=== PATIENT | female | born 1955 | race Caucasian/White ===

== ENCOUNTER → 2016-11-07 | Outpatient (CLI) | payer OTHER ==
[~2016-11-07] MED LIST: ATOR40TA PO; BENA20 PO; FURO20 PO; LAMI250T PO; POTA99TA12 PO; PRIL10CA PO; SERT-129 PO
--- NOTE | 2016-11-07 08:19 | RADRPT ---
EXAM DATE/TIME: 11/07/2016 07:48 [facility] COMPARISON: CHEST SINGLE AP, November 06, 2010, 9:31. INDICATIONS : Cough, congestion x 3 weeks. MEDICAL HISTORY : Hypertension. Renal calculi. Gastroesophageal reflux disease. Pulmonary embolism. SURGICAL HISTORY : Tonsillectomy. Tubal ligation. ENCOUNTER: Initial ACUITY: 3 weeks PAIN SCORE: 0/10 LOCATION: chest FINDINGS: There is mild atelectasis or infiltrate in the lower lung zones. A small area of nodular density seen in the lateral right midlung is not present previously. Retrocardiac double density may be hiatal he rnia. Cardiomediastinal contours are satisfactory otherwise. Thoracic skeleton appears intact. CONCLUSION: Basilar infiltrates. Small area of nodular density in the right midlung Francisco Yao MD on November 07, 2016 at 8:15 Board Certified Radiologist. This report was verified electronically.
== END ==
LOC: HRAD 07:33
DX: J18.9 Pneumonia, unspecified organism (principal)
CPT/HCPCS: 71020

== ENCOUNTER → 2016-11-19 | Outpatient (CLI) | payer OTHER ==
--- NOTE | 2016-11-19 09:12 | RADRPT ---
EXAM DATE/TIME: 11/19/2016 08:50 [facility] COMPARISON: CHEST PA & LAT, November 07, 2016, 7:48. INDICATIONS : Pneumonia. MEDICAL HISTORY : Hypertension. Gastroesophageal reflux disease. pulmonary embolism SURGICAL HISTORY : None. ENCOUNTER: Initial ACUITY: 3 weeks PAIN SCORE: 0/10 LOCATION: Bilateral chest FINDINGS: Slight basilar parenchymal opacity persists, more pronounced on the right than the left. Small area o f nodular density overlying the lateral right midlung is again noted. Hiatal hernia is again suspecte d. Cardiac contour is otherwise grossly satisfactory. No evidence of effusion. Degenerative changes p resent in the spine. CONCLUSION: Persistent nodular density overlying lateral right midlung. CT chest may be beneficial for definitive evaluation at this point Francisco Yao MD on November 19, 2016 at 9:08 Board Certified Radiologist. This report was verified electronically.
== END ==
LOC: HRAD 08:39
PROVIDERS: ATTEND Pediatrics
DX: J18.9 Pneumonia, unspecified organism (principal)
CPT/HCPCS: 71020

== ENCOUNTER → 2016-12-03 | Outpatient (CLI) | payer OTHER ==
[~2016-12-03] MED LIST changes: +IOHEXOL 350 MG/ML 10 ML VIAL (for RAD DIAG) IV ONE
--- NOTE | 2016-12-03 15:35 | RADRPT ---
EXAM DATE/TIME: 12/03/2016 14:10 [facility] COMPARISON: CHEST PA & LAT, November 19, 2016, 8:50. INDICATIONS : Current chest pain, recent pneumonia. IV CONTRAST: 70 cc Omnipaque 350 (iohexol) IV RADIATION DOSE: 6.85 CTDIvol (mGy) MEDICAL HISTORY : Hypertension. Renal calculi. Diabetes mellitus type 1.Hiatal hernia SURGICAL HISTORY : Tubal ligation. ENCOUNTER: Initial ACUITY: 1 day PAIN SCALE: 2/10 LOCATION: Bilateral chest TECHNIQUE: Volumetric scanning of the chest was performed. Using automated exposure control and adjustment of t he mA and/or kV according to patient size, radiation dose was kept as low as reasonably achievable to obtain optimal diagnostic quality images. FINDINGS: There are two small nonspecific parenchymal lung nodules identified, one in the left lung measuring 6 mm and one in the right lung measuring 4 mm. This is associated with pleural thickening of the minor fi ssure on the right. There is no axillary adenopathy. There is no mediastinal adenopathy. Prominent hiatal hernia is not ed. Moderate fatty replacement is identified in the portion of the liver identified. Portion of spleen visualized is unremarkable. CONCLUSION: Two small nonspecific identified in both lungs. These could be followed up with a CT scan in 6 lynn hs to ensure stability. Nathen Thompson MD FACR on December 03, 2016 at 14:36 Board Certified Radiologist. This report was verified electronically.
== END ==
LOC: HRAD 13:24
DX: R93.8 Abnormal findings on diagnostic imaging of other specified body structures (principal)
CPT/HCPCS: 71260; Q9967

== ENCOUNTER → 2017-05-25 | Outpatient (CLI) | payer OTHER ==
[~2017-05-25] MED LIST changes: -IOHEXOL 350 MG/ML 10 ML VIAL (for RAD DIAG) IV ONE; +IOHEXOL 350 MG/ML 10 ML VIAL (for RAD DIAG) IVCONTRAST ONE
--- NOTE | 2017-05-25 13:35 | RADRPT ---
EXAM DATE/TIME: 05/25/2017 12:53 [facility] COMPARISON: CT THORAX W CONTRAST, December 03, 2016, 14:10. INDICATIONS : Abnormal prior chest CT. IV CONTRAST: 56 cc Omnipaque 350 (iohexol) IV RADIATION DOSE: 6.59 CTDIvol (mGy) MEDICAL HISTORY : Diabetes mellitus type 2. Hypertension. SURGICAL HISTORY : Tubal ligation. Tonsillectomy. ENCOUNTER: Initial ACUITY: 1 day PAIN SCALE: 0/10 LOCATION: Bilateral chest TECHNIQUE: Volumetric scanning of the chest was performed. Using automated exposure control and adjustment of t he mA and/or kV according to patient size, radiation dose was kept as low as reasonably achievable to obtain optimal diagnostic quality images. DICOM format image data is available electronically for review and comparison. Follow-up recommendations for detected pulmonary nodules are based at a minimum on nodule size and pa tient risk factors according to Fleischner Society Guidelines. FINDINGS: LUNGS: No suspicious lung lesions PLEURA: There is no pleural thickening or pleural effusion. MEDIASTINUM: The heart and great vessels demonstrate no acute abnormality. There is no mediastinal or hilar lymph adenopathy. AXILLAE: Within normal limits. No lymphadenopathy. SKELETAL: Within normal limits for patient age. MISCELLANEOUS: Large hyper hernia with moderate fatty replacement in the liver. CONCLUSION: 1. No suspicious lung lesions. 2. Large hyper hernia and moderate to replacement the liver. Nathen Thompson MD FACR on May 25, 2017 at 13:32 Board Certified Radiologist. This report was verified electronically.
== END ==
LOC: HRAD 12:05
DX: R91.8 Other nonspecific abnormal finding of lung field (principal)
CPT/HCPCS: 71260; Q9967

== ENCOUNTER → 2017-06-10 | Outpatient (CLI) | payer OTHER ==
[~2017-06-10] MED LIST changes: -IOHEXOL 350 MG/ML 10 ML VIAL (for RAD DIAG) IVCONTRAST ONE
--- NOTE | 2017-06-11 08:58 | RSPPFT ---
DATE OF PROCEDURE: 06/10/17 COMMENTS: Spirometry shows FVC of 2.8 at 88% of predicted, FEV1 of 2.1 at 82%, FEV1/FVC ratio is normal. Flow is decreased at FEF 25, FEF 50, FEF 75 and FEF 25-75. There is a mild response after acutely inhaled bronchodilator treatment. Lung volumes show residual volume is normal. TLC is normal. Diffusion capacity is normal. Flow volume loop indicates a normal pattern. Room air arterial blood gases show pH of 7.42, PCO2 of 40, PO2 of 80, BiCarb of 27 and O2 Saturation of 98%. IMPRESSION: 1. Normal spirometry. 2. Mild small airways obstructive lung disease. 3. Mild response to bronchodilator treatment. 4. Normal lung volumes. 5. Normal diffusion capacity. 6. Blood gases show normal oxygenation on room air.
== END ==
LOC: HRSP 12:31
PROVIDERS: ATTEND Specialist
DX: J44.9 Chronic obstructive pulmonary disease, unspecified (principal)
CPT/HCPCS: 36600; 82805; 94060; 94726; 94729

== ENCOUNTER → 2017-06-19 | Outpatient (CLI) | payer OTHER ==
[~2017-06-19] VITALS: Ht 167.6 cm; Wt 109.3 kg
[~2017-06-19] MED LIST changes: -ATOR40TA PO; +ATOR40TA16 PO; -BENA20 PO; +BENA20TA PO; +CHLORHEXIDINE GLUCONATE 2 % 1 PACK (2 CLOTHS) TOPICAL PRN; +FURO1TAB60 PO; -FURO20 PO; +INSULIN HUMAN REGULAR 1,000 UNITS/10 ML VIAL SQ PRN; +LACTATED RINGER'S 1000 ML IV PRN; -LAMI250T PO; +METOPROLOL TARTRATE 25 MG TAB PO PRN; +POTA-255 PO; -POTA99TA12 PO; +POVIDONE IODINE 5% (ANTISEPSIS KIT) 4 APPLICATIONS EACH NARE PRN; -PRIL10CA PO; +PRIL20TA2 PO; +SODIUM CHLORID 0.9% 500 ML IV PRN
--- NOTE | 2017-06-19 10:24 | GIPROC ---
[facility] [address] [facility], [address] EGD PROCEDURE REPORT EXAM DATE: 06/19/2017 PATIENT NAME: Negrita Guerra MR #: [id number] BIRTHDATE: 1955 ATTENDING: Orion Ramos MD ORDER #: [id number] NEUROSCIENTIST: Patricia Narayanan and Concepcion Finn STATUS: outpatient INDICATIONS: The patient is a 62 yr old female here for an EGD due to epigastric abdominal pain, heartburn, and Hiatal hernia PROCEDURE PERFORMED: EGD w/ biopsy MEDICATIONS: Per Anesthesia and None. TOPICAL ANESTHETIC: none CONSENT: The patient understands the risks and benefits of the procedure and understands that these risks include, but are not limited to: sedation, allergic reaction, infection, perforation and/or bleeding. Alternative means of evaluation and treatment include, among others: physical exam, x-rays, and/or surgical intervention. The patient elects to proceed with this endoscopic procedure. medical equipment was checked for proper function. Hand hygiene and appropriate measures for infection prevention was taken. After the risks, benefits and alternatives of the procedure were thoroughly explained, Informed consent was verified, confirmed and timeout was successfully executed by the treatment team. The patient was anesthetized with topical anesthesia and the Pentax EG-[id number] endoscope was introduced through the mouth and advanced to the third portion of the duodenum. Retroflexion was performed and was normal The gastroscope was then slowly withdrawn and removed. ESOPHAGUS: A 2 cm hiatal hernia was noted. Irregular GE jx-biopsied. STOMACH: There was mild gastritis on the posterior wall of the gastric body and in the gastric antrum. Multiple biopsies were performed. DUODENUM: The duodenal mucosa appeared normal. Cold forcep biopsies were taken in the 3rd portion. ADVERSE EVENTS: There were no complications. IMPRESSIONS: 1. 2 cm hiatal hernia 2. Irregular GE jx-biopsied 3. There was mild gastritis on the posterior wall of the gastric body and in the gastric antrum; multiple biopsies were performed 4. Normal duodenal mucosa 5. Retroflexion was performed and was normal RECOMMENDATIONS: 1. Await biopsy results. Biopsy results will not be ready for 7-10 days. If you don't hear from us in two weeks, call our office for biopsy results. 2. OV in 1 month PATIENT CONDITION: stable DISPOSITION: Home REPEAT EXAM: NONE Orion Ramos MD eSigned: Orion Ramos MD 06/19/2017 10:24 AM cc: PATIENT NAME: Negrita Guerra MR#: [id number]
[2017-06-19 11:25] VITALS: BP 101/64; PULSE 74; RESP 16; TEMP 97.9; O2SAT 95
--- NOTE | 2017-06-19 12:09 | EKG ---
Date Performed: 06/19/2017 Time Performed: 08:28:25 PTAGE: 62 years EKG: Sinus rhythm NORMAL ECG NO PREVIOUS TRACING DOCTOR: Irwin Fonseca Interpretating Date/Time 06/19/2017 12:07:56
== END ==
LOC: HSDC 07:37
PROVIDERS: ATTEND Internal Medicine Gastroenterology
DX: K31.9 Disease of stomach and duodenum, unspecified (principal); K21.9 Gastro-esophageal reflux disease without esophagitis; K29.70 Gastritis, unspecified, without bleeding; K44.9 Diaphragmatic hernia without obstruction or gangrene; R10.13 Epigastric pain
CPT/HCPCS: 00740; 43239; 88305; 88312; 93005; J7120

== ENCOUNTER → 2017-06-24 | Outpatient (CLI) | payer OTHER ==
[~2017-06-24] MED LIST changes: -CHLORHEXIDINE GLUCONATE 2 % 1 PACK (2 CLOTHS) TOPICAL PRN; -INSULIN HUMAN REGULAR 1,000 UNITS/10 ML VIAL SQ PRN; -LACTATED RINGER'S 1000 ML IV PRN; +METOCLOPRAMIDE HCL 10 MG/2 ML VIAL ONE; -METOPROLOL TARTRATE 25 MG TAB PO PRN; -POVIDONE IODINE 5% (ANTISEPSIS KIT) 4 APPLICATIONS EACH NARE PRN; -SODIUM CHLORID 0.9% 500 ML IV PRN
--- NOTE | 2017-06-24 13:57 | RADRPT ---
EXAM DATE/TIME: 06/24/2017 10:08 [facility] COMPARISON: No previous studies available for comparison. INDICATIONS : Nausea, vomiting and abdominal pain. DOSE: 1.0 mCi Tc99m Sulfur Colloid Labeled Whole egg PO MEDICATONS: 1.) 5 mg Reglan IV at 90 minutes IMAGIN hrs MEDICAL HISTORY : Hypertension. Diabetes mellitus type 2. SURGICAL HISTORY : Tonsillectomy. Tubal ligation. ENCOUNTER: Initial ACUITY: 1 week PAIN SCALE: 0/10 LOCATION: Abdomen. TECHNIQUE: Following the oral ingestion of radiotracer-labeled meal, dynamic sequential images in the WELSH projec tion were acquired with simultaneous computer acquisition. The data set was decay-corrected. FINDINGS: There is very poor gastric emptying until Reglan is administered. With Reglan there is resumption of normal kinetics. Half-time of gastric emptying without Reglan is greater than 2 hours. CONCLUSION: Markedly abnormal kinetics as described above. Nathen Thompson MD FACR on June 24, 2017 at 13:54 Board Certified Radiologist. This report was verified electronically.
== END ==
LOC: HRAD 08:21
PROVIDERS: ATTEND Internal Medicine Gastroenterology
DX: K21.9 Gastro-esophageal reflux disease without esophagitis (principal); K44.9 Diaphragmatic hernia without obstruction or gangrene
CPT/HCPCS: 78264; A9541; J2765

== ENCOUNTER 2017-09-19 12:55 | Emergency (ER) | payer OTHER ==
[~2017-09-19 12:55] MED LIST changes: -METOCLOPRAMIDE HCL 10 MG/2 ML VIAL ONE
[2017-09-19 12:56] VITALS: BP 135/81; PULSE 102; RESP 18; TEMP 101.4; O2SAT 95
--- NOTE | 2017-09-19 13:10 | PD ---
HPI Chief Complaint: Cold / Flu Symptoms Time Seen by Provider: 13:09 Travel History International Travel<30 days: No Contact w/Intl Traveler<30days: No Traveled to known affect area: No History of Present Illness HPI 62-year-old female presents to emergency department for evaluation of cough, chest congestion, fever, chills, body aches worsening over the last 2 days. Patient denies any nausea or vomiting. She has had no chest pain or tightness. She does have a remote tobacco cigarette smoking history. She denies any pulmonary disease. She has no other symptoms to report. PFSH Past Medical History Cancer: Yes (SKIN CANCER) Cardiovascular Problems: Yes Diabetes: Yes (TAKES NO MEDICATIONS) Patient Takes Glucophage: No Diminished Hearing: No Endocrine: Yes (FATTY LIVER DISEASE) Gastrointestinal Disorders: Yes (ACID REFLUX,) GERD: Yes Genitourinary: No Hepatitis: No Hiatal Hernia: Yes Hypertension: Yes Immune Disorder: Yes Musculoskeletal: No Neurologic: No Psychiatric: No Reproductive: No Respiratory: Yes Sleep Apnea: Yes Thyroid Disease: No Tetanus Vaccination: < 5 Years Influenza Vaccination: Yes Menopausal: Yes Tubal Ligation: Yes Past Surgical History Abdominal Surgery: No AICD: No Cardiac Surgery: No Ear Surgery: No Endocrine Surgery: No Eye Surgery: No Genitourinary Surgery: No Gynecologic Surgery: Yes (TUBAL LIGATION) Joint Replacement: No Oral Surgery: Yes (TONSILLECTOMY) Pacemaker: No Thoracic Surgery: No Tonsillectomy: Yes Other Surgery: Yes Social History Alcohol Use: Yes (OCCASIONAL) Tobacco Use: No (quit 7 years) Substance Use: No Allergies-Medications (Allergen,Severity, Reaction): Coded Allergies: No Known Allergies (Verified Allergy, Unknown, 09/19/17) Reported Meds & Prescriptions Reported Meds & Active Scripts Active Tamiflu (Oseltamivir Phosphate) 75 Mg Cap 75 Mg PO BID 5 Days Proair Hfa 8.5 GM Inh (Albuterol Sulfate) 90 Mcg/Act Aer 2 Puff INH Q4HR PRN 108 mcg/actuation Prednisone 50 Mg Tab 50 Mg PO DAILY 5 Days Zithromax Z-Jordi (Azithromycin) 250 Mg Dspk 250 Mg PO DIRECTED 500 MG (2 tabs) day 1, then 1 tab days 2-5. Reported Tylenol (Acetaminophen) 325 Mg Tab 650 Mg PO Q6H PRN Tessalon Perles (Benzonatate) 100 Mg Cap 100 Mg PO BID 5 Days Azelastine Nasal [place] (Azelastine HCl) 0.1% [place] 2 [place] EACH NARE BID Sertraline (Sertraline HCl) 100 Mg Tab 100 Mg PO DAILY Prilosec (Omeprazole Magnesium) 20 Mg Tab 20 Tab PO HS Prilosec (Omeprazole Magnesium) 20 Mg Tab 40 Tab PO DAILYAC Potassium (Potassium Gluconate) 600 Mg (99 Mg) Tablet 99 Tab PO DAILY Lasix (Furosemide) 40 Mg Tab 40 Mg PO DAILY Atorvastatin (Atorvastatin Calcium) 40 Mg Tab 40 Mg PO HS Benazepril (Benazepril HCl) 20 Mg Tab 20 Mg PO DAILY Review of Systems Except as stated in HPI: all other systems reviewed are Neg Physical Exam Narrative GENERAL: Well-nourished female patient in no acute distress SKIN: Focused skin assessment warm/dry. HEAD: Atraumatic. Normocephalic. EYES: Pupils equal and round. No scleral icterus. No injection or drainage. ENT: No nasal bleeding or discharge. Mucous membranes pink and moist. NECK: Trachea midline. No JVD. CARDIOVASCULAR: Tachycardic rate and rhythm. No murmur appreciated. RESPIRATORY: No accessory muscle use. Coarse, diminished bases to auscultation. Breath sounds equal bilaterally. GASTROINTESTINAL: Abdomen soft, non-tender, nondistended. Hepatic and splenic margins not palpable. MUSCULOSKELETAL: No obvious deformities. No clubbing. No cyanosis. No edema. NEUROLOGICAL: Awake and alert. No obvious cranial nerve deficits. Motor grossly within normal limits. Normal speech. PSYCHIATRIC: Appropriate mood and affect; insight and judgment normal. Data Data Last Documented VS Vital Signs Date Time Temp Pulse Resp B/P (MAP) Pulse Ox O2 Delivery O2 Flow Rate FiO2 09/19/17 14:35 09/19/17 12:56 101.4 102 18 95 Orders Orders Influenzae A/B Antigen (09/19/17 13:13) Albuterol-Ipratropium Neb (Duoneb Neb) (09/19/17 13:15) Chest, Single Ap (09/19/17 ) Ibuprofen (Motrin) (09/19/17 13:45) Ed Discharge Order (09/19/17 14:21) MDM Medical Decision Making Medical Screen Exam Complete: Yes Emergency Medical Condition: Yes Medical Record Reviewed: Yes Differential Diagnosis Influenza versus pneumonia versus bronchitis versus bronchiolitis versus common cold versus viral syndrome Narrative Course 62-year-old female presents to emergency department for evaluation. Patient appears without distress. She does have a coarse cough, she is febrile, and tachycardic. Influenza screen is positive for influenza a. Patient's chest x- rays without infiltrate, however based on a long-standing tobacco smoking history although she has quit as well as additional comorbidities I feel it is best to treat for possible pneumonia as well. Plan is discussed with my attending and she is in agreement with this plan of care. Diagnosis Primary Impression: Influenza A Additional Impression: Bronchiolitis Referrals: Primary Care Physician Patient Instructions: General Instructions, Influenza (ED) Additional Instructions: It is important that you cough and take deep breaths Humidified air may help to alleviate symptoms Follow up with your primary care provider Return to the ED with acute worsening of symptoms Med/Other Pt SpecificInfo: Prescription(s) given Scripts Oseltamivir (Tamiflu) 75 Mg Cap 75 MG PO BID for Mgmt Viral Infection for 5 Days, #10 CAP 0 Refills Prov: Mary Grace Pearson 09/19/17 Albuterol 8.5 GM Inh (Proair Hfa 8.5 GM Inh) 90 Mcg/Act Aer 2 PUFF INH Q4HR Y for SHORTNESS OF BREATH, #1 INHALER 0 Refills 108 mcg/actuation Prov: Mary Grace Pearson 09/19/17 Prednisone (Prednisone) 50 Mg Tab 50 MG PO DAILY for 5 Days, #5 TAB 0 Refills Prov: Mary Grace Pearson 09/19/17 Azithromycin (Zithromax Z-Jordi) 250 Mg Dspk 250 MG PO DIRECTED for Infection, #1 DSPK 0 Refills 500 MG (2 tabs) day 1, then 1 tab days 2-5. Prov: Mary Grace Pearson 09/19/17 Disposition: 01 DISCHARGE HOME Condition: Stable Mary Grace Pearson Sep 19, 2017 13:10
[2017-09-19] MEDS ORDERED: RESP: ALBUTEROL 2.5 MG/IPRATROPIUM 0.5 MG NEB (SCH) NEB ONE (13:15)
[2017-09-19] MEDS ORDERED: TYLE325T PO (13:17)
[2017-09-19] MEDS ORDERED: AZEL1SPR2 EACH NARE (13:17)
[2017-09-19] MEDS ORDERED: BENZ100 PO (13:17)
[2017-09-19] MEDS ORDERED: IBUPROFEN 600 MG TAB PO ONE (13:45)
--- NOTE | 2017-09-19 14:16 | RADRPT ---
EXAM DATE/TIME: 09/19/2017 13:44 [facility] COMPARISON: CHEST PA & LAT, November 19, 2016, 8:50. INDICATIONS : Short of Breath MEDICAL HISTORY : Diabetes mellitus type II. Hypertension SURGICAL HISTORY : Tubal ligation. Tonsillectomy. ENCOUNTER: Initial ACUITY: 1 day PAIN SCORE: 0/10 LOCATION: chest FINDINGS: A single view of the chest demonstrates the lungs to be symmetrically aerated without evidence of mas s, infiltrate or effusion. Retrocardiac density presumed hiatal hernia. The cardiomediastinal contour s are unremarkable. Osseous structures are intact. CONCLUSION: No acute disease. Hiatal hernia. Maikel Hobbs MD on September 19, 2017 at 14:11 Board Certified Radiologist. This report was verified electronically.
[2017-09-19] MEDS ORDERED: ZITHTAB PO (14:27)
[2017-09-19] MEDS ORDERED: ALBUAER3 INH (14:27)
[2017-09-19] MEDS ORDERED: PRED50 PO (14:27)
[2017-09-19] MEDS ORDERED: OSEL75 PO (14:28)
== END 2017-09-19 14:36 | disposition home or self-care (01) ==
LOC: NEPD 12:55
DX: J10.1 Influenza due to other identified influenza virus with other respiratory manifestations (principal); E11.9 Type 2 diabetes mellitus without complications; I10 Essential (primary) hypertension; K44.9 Diaphragmatic hernia without obstruction or gangrene; Z85.828 Personal history of other malignant neoplasm of skin; Z87.891 Personal history of nicotine dependence
CPT/HCPCS: 71045; 87804; 99284